=== PATIENT | male | born 1980 | race Caucasian/White ===

== ENCOUNTER 2016-11-25 15:18 | Observation (INO) | payer OTHER ==
[~2016-11-25] VITALS: Ht 190.5 cm; Wt 193.6 kg
[~2016-11-25 15:18] MED LIST: AMBIEN5 MG PO; AMLODIPINE BESYL5 MG PO; ASPIR 8181 M1 PO; ASPIRIN81 M2 PO; Aspirin E.C. PO; CHERATUSSIN AC473 ML PO; CHEWABLE MULTI1 EACH PO; CIPRO500 MG PO; CIPRODEX OTIC7.5 ML LEFT EAR; CIPROFLOXACIN500 M1 PO; DILAUDID2 MG PO; FIORICET,ESG1 TABLET PO; FLAGYL500 MG PO; FLUOXETINE HCL20 MG PO; GARCINIA CAMBO1 EACH PO; HCTZ; HYDROCHLOROTH12.5 M3 PO; LISINOPRIL40 MG; LISINOPRIL40 MG PO; METOPROLOL SUCC50 MG; METRONIDAZOLE500 MG PO; MOTRIN800 MG PO; NAPROSYN500 MG PO; NAPROXEN500 MG PO; NOHOMEMEDS; NORCO 5/3251 TABLET PO; NORCO 7.5/321 TABLET PO; NORVASC5 MG PO; OXYCODONE HCL5 MG PO; PANTOPRAZOLE SO40 MG PO; PERCOCET 5/31 TABLET PO; PRAVACHOL20 MG PO; PREDNISONE20 MG PO; PREDNISONE50 MG PO; PROZAC40 MG PO; SKELAXIN800 MG PO; SUPER B COMP1 TABLET PO; SUPER MULTIVIT1 EACH PO; TUSSIN CF COUG118 ML PO; TYLENOL EXTRA500 MG PO; TYLENOL WITH C1 EACH PO; VALIUM5 MG PO; VIAGRA100 MG PO; ZANTAC150 MG PO; ZITHROMAX Z-PA250 MG PO; ZOFRAN4 MG PO
[2016-11-25 22:07] VITALS: BP 191/87
[2016-11-26 04:14] VITALS: BP 179/93
[2016-11-26 07:47] VITALS: BP 151/89
[2016-11-26] MEDS ORDERED: NORCO 5/3251 TABLET PO (12:12)
[2016-11-26] MEDS ORDERED: CRUTCH1 EACH MC (12:13)
[2016-11-26] MEDS ORDERED: MOTRIN400 MG PO (12:22)
[2016-11-26] MEDS ORDERED: ADULT FOLDING1 EACH MC (15:19)
== END 2016-11-26 16:25 | disposition home or self-care (01) ==
LOC: EME 15:18 → EDOF 20:37 → 3EAST 20:37 → EDOF 20:37 → 3EAST 21:59
DX: S32.491A Other specified fracture of right acetabulum, initial encounter for closed fracture (principal); S43.421A Sprain of right rotator cuff capsule, initial encounter; W00.0XXA Fall on same level due to ice and snow, initial encounter; E66.01 Morbid (severe) obesity due to excess calories; Z68.43 Body mass index [BMI] 50.0-59.9, adult; I10 Essential (primary) hypertension; E78.5 Hyperlipidemia, unspecified; K21.9 Gastro-esophageal reflux disease without esophagitis; Z87.891 Personal history of nicotine dependence; Z83.49 Family history of other endocrine, nutritional and metabolic diseases; Z88.0 Allergy status to penicillin
CPT/HCPCS: 72192; 73030; 73502; 99281; 99284; G0378; J1650; J3010

== ENCOUNTER 2017-03-25 22:12 | Emergency (ER) | payer OTHER ==
[~2017-03-25] VITALS: Ht 190.5 cm; Wt 203.0 kg
[~2017-03-25 22:12] MED LIST changes: +ADULT FOLDING1 EACH MC; +CRUTCH1 EACH MC; +MOTRIN400 MG PO
[2017-03-25 22:50] LABS: HEMATOCRIT 44.6 % (38.0-50.0); MCH 28.8 PG (29.0-34.0); MCHC 33.4 G/DL (30.0-36.0); MCV 86.3 FL (86-99); MEAN PLAT.VOLUME 10.9 uM^3 (9.0-12.4); PLATELET COUNT 264 K/uL (156-360); RBC DIS.WIDTH-CV 12.9 % (11.8-14.6); RBC DIS.WIDTH-SD 40.5 % (39-53); RED BLOOD COUNT 5.17 M/uL (4.00-5.50); WHITE BLOOD COUNT 8.8 K/uL (4.1-10.2)
[2017-03-25 23:02] LABS: CHLORIDE 96 mEq/L (99-109); SODIUM 132 mEq/L (136-147)
[2017-03-25 23:05] LABS: ANION GAP 13 MEQ/L (2-14)
[2017-03-25 23:07] LABS: GFR ESTIMATE (CALCULATED) > 59 mL/min/
[2017-03-25 23:08] LABS: UREA NITROGEN (BUN) 9 mg/dL (9-23)
[2017-03-25 23:12] LABS: TROP-I INTERPRETATION NEGATIVE; TROPONIN-I < 0.01 ng/mL (0.0-0.30)
[2017-03-25 23:51] LABS: GLUCOSE 503 mg/dL (70-99)
[2017-03-26 00:38] LABS: POINT-OF-CARE METER ID UU13113702; POINT-OF-CARE USER ID 608261302
[2017-03-26] MEDS ORDERED: METFORMIN HCL500 MG PO (01:53)
[2017-03-26 01:55] LABS: POINT-OF-CARE METER ID UU13113702
[2017-03-26 02:37] LABS: POINT-OF-CARE METER ID UU13113702
[2017-03-26 02:42] VITALS: BP 142/103
[2017-03-26 07:51] LABS: Estimated Average Glucose 344 mg/dL (70-123); HEMOGLOBIN A1c (GLYCOHEMOGLOB) 13.6 % HGB (Below 5.7)
== END 2017-03-26 02:53 | disposition home or self-care (01) ==
LOC: EME 22:12
PROVIDERS: Emergency Medicine
DX: E11.65 Type 2 diabetes mellitus with hyperglycemia (principal); R00.2 Palpitations; E86.0 Dehydration; R42 Dizziness and giddiness; R07.9 Chest pain, unspecified; I10 Essential (primary) hypertension; Z82.49 Family history of ischemic heart disease and other diseases of the circulatory system; Z87.891 Personal history of nicotine dependence
CPT/HCPCS: 71020; 80048; 82948; 83036; 84484; 85027; 93005; 99281; 99285; J7030

== ENCOUNTER 2017-03-30 02:20 | Emergency (ER) | payer OTHER ==
[~2017-03-30] VITALS: Ht 188 cm; Wt 202.3 kg
[~2017-03-30 02:20] MED LIST changes: +METFORMIN HCL500 MG PO
[2017-03-30 02:41] LABS: POINT-OF-CARE METER ID UU13113778
[2017-03-30 03:32] LABS: ADD MIUA? NO; BILIRUBIN NEGATIVE; BLOOD NEGATIVE; COLOR YELLOW ((YELLOW)); GLUCOSE (STRIP) 50; KETONES 20; LEUKOCYTES NEGATIVE; NITRITE NEGATIVE; PROTEIN (STRIP) 30; SPECIFIC GRAVITY 1.021 (1.000-1.030); UCUL ADDED? NO; UROBILINOGEN 0.2 MG/DL (0.2-1.0)
[2017-03-30 03:45] LABS: HEMATOCRIT 44.3 % (38.0-50.0); MCH 29.1 PG (29.0-34.0); MCHC 33.6 G/DL (30.0-36.0); MCV 86.5 FL (86-99); MEAN PLAT.VOLUME 11.1 uM^3 (9.0-12.4); PLATELET COUNT 267 K/uL (156-360); RBC DIS.WIDTH-CV 13.1 % (11.8-14.6); RBC DIS.WIDTH-SD 40.9 % (39-53); RED BLOOD COUNT 5.12 M/uL (4.00-5.50); WHITE BLOOD COUNT 10.5 K/uL (4.1-10.2)
[2017-03-30 03:55] LABS: CHLORIDE 99 mEq/L (99-109); POTASSIUM 3.5 mEq/L (3.7-5.4); SODIUM 135 mEq/L (136-147)
[2017-03-30 03:57] LABS: GLUCOSE 242 mg/dL (70-99)
[2017-03-30 03:58] LABS: ANION GAP 12 MEQ/L (2-14)
[2017-03-30 03:59] LABS: TOTAL BILIRUBIN 0.7 mg/dL (0.0-1.0)
[2017-03-30 04:00] LABS: ALKALINE PHOSPHATASE 60 IU/L (3-129)
[2017-03-30 04:01] LABS: GFR ESTIMATE (CALCULATED) > 59 mL/min/
[2017-03-30 04:02] LABS: UREA NITROGEN (BUN) 18 mg/dL (9-23)
[2017-03-30 04:48] LABS: TROP-I INTERPRETATION NEGATIVE; TROPONIN-I < 0.01 ng/mL (0.0-0.30)
[2017-03-30 05:24] VITALS: BP 155/100
== END 2017-03-30 05:24 | disposition home or self-care (01) ==
LOC: EME 02:20
DX: E86.0 Dehydration (principal); R53.1 Weakness; R11.0 Nausea; M79.1 Myalgia; T38.3X5A Adverse effect of insulin and oral hypoglycemic [antidiabetic] drugs, initial encounter; E11.9 Type 2 diabetes mellitus without complications; Z79.84 Long term (current) use of oral hypoglycemic drugs; I10 Essential (primary) hypertension; R56.9 Unspecified convulsions; Z88.1 Allergy status to other antibiotic agents; Z87.891 Personal history of nicotine dependence
CPT/HCPCS: 80053; 81003; 82803; 82948; 83605; 84484; 85027; 99281; 99284; J7030